=== PATIENT | female | born 1985 | race Caucasian/White ===

== ENCOUNTER 2016-09-21 13:49 | Emergency (ER) | payer OTHER ==
[~2016-09-21] VITALS: Ht 160 cm; Wt 79.5 kg
[~2016-09-21 13:49] MED LIST: FAMO-18 PO; IBUP-1542 PO; LORA-441 PO
[2016-09-21 14:19] VITALS: Ht 160 cm; Wt 79.5 kg
--- NOTE | 2016-09-21 15:51 | RADRPT ---
PROCEDURE: XR Chest. CLINICAL INDICATION: chest pain TECHNIQUE: Single frontal view of the chest was obtained COMPARISON: 03/04/16 FINDINGS: The heart and mediastinum are within normal limits. The lungs are clear. There is no pleural effusion or pneumothorax. RPTAT: AA IMPRESSION: No acute disease. .Brian Martin MD, MD Date Time Electronically viewed and signed by .Brian Martin MD, on 09/21/2016 15:51 .S/
--- NOTE | 2016-09-21 15:55 | ERD ---
ER Documentation Chief Complaint Date/Time DATE: 09/21/16 TIME: 15:51 Chief Complaint left/mid chest pain on/off x 1 week HPI Patient is a 30-year-old female who presents to the ED with left sided chest pain and sternum pain for 2 weeks on and off. She states that the pain is reproducible upon palpation. She states that when she pushes on her sternum she feels the pain. As well as on the left side of her chest. She denies radiation of pain. She denies shortness of breath or difficulty breathing. She denies nausea, vomiting or diarrhea. 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 She states that she has had this in the past. States that the pain went away on its own. She has not taken any medication for her symptoms. She denies headache or dizziness or passing out. She denies any cardiac problems besides hypertension which she is taking medicine. She states that her mom and grandma have had heart attacks and high blood pressure. No sudden cardiac in the family. Denies leg pain or swelling. Denies recent travel or use of OCPs. Denies recent surgeries. ROS All systems reviewed and are negative except as per history of present illness. Medications Home Meds Active Scripts Ibuprofen* (Motrin*) 600 Mg Tab, 600 MG PO Q6, #30 TAB Prov:SELWYN WADSWORTH PA-C 09/21/16 Lorazepam* (Ativan*) 0.5 Mg Tablet, 0.5 MG PO Q8, #10 TAB Prov:KANNAN HOWELL PA-C 03/04/16 Ibuprofen* (Motrin*) 600 Mg Tab, 600 MG PO Q6, #20 TAB Prov:KANNAN HOWELL PA-C 03/04/16 Famotidine* (Pepcid*) 20 Mg Tablet, 20 MG PO BID for 14 Days, TAB Prov:KANNAN HOWELL PA-C 03/04/16 Allergies Allergies: Coded Allergies: No Known Allergy (Unverified , 03/04/16) PMhx/Soc Medical and Surgical Hx: pt denies Medical Hx, pt denies Surgical Hx History of Surgery: Yes (appendix) Anesthesia Reaction: No Hx Neurological Disorder: No Hx Respiratory Disorders: No Hx Cardiac Disorders: Yes (htn) Hx Psychiatric Problems: No Hx Miscellaneous Medical Probl: No Hx Alcohol Use: No Hx Substance Use: No Hx Tobacco Use: No Smoking Status: Never smoker FmHx Family History: coronary disease (htn, [place]), No diabetes, No other Physical Exam Vitals Vital Signs Date Time Temp Pulse Resp B/P Pulse Ox O2 Delivery O2 Flow Rate FiO2 09/21/16 14:19 98.4 95 18 158/87 98 Physical Exam GENERAL: Well-developed, well-nourished female. Appears in no acute distress. ENT: Moist mucous membranes. No uvula deviation. No kissing tonsils. No exudates. NECK: Supple. No lymphadenopathy or thyromegaly. No meningismus. negative kernig. negative brudinski. LUNG: Clear to auscultation bilaterally. No rhonchi, wheezing, rales or coarse breath sounds. tenderness to sternum and left sided chest. pain is reproducible upon palpation. no stepoffs or deformities. no open wounds or lacerations. no erythema HEART: Regular rate and rhythm. No murmurs, rubs or gallops. Extremities: Equal pulses bilaterally. No peripheral clubbing, cyanosis or edema. No unilateral leg swelling. NEUROLOGIC: Alert and oriented. Moving all four extremities. 5/5 strength in all extremities. Normal speech. Steady gait. SKIN: Normal color. Warm and dry. No rashes or lesions. Capillary refill < 2 seconds Procedures/MDM ER COURSE: I kept the patient and/or family informed of laboratory and diagnostic imaging results throughout the emergency room course. EKG, MONITORS, & DIAGNOSTIC IMAGING: EKG performed, read by Dr. Mendiola 89 bpm, normal sinus rhythm, normal axis, no acute ST segment changes, no T wave inversion [place] [id number] Radiology Main Line: [phone] DIAGNOSTIC IMAGING REPORT Patient: CHON VERONICA : 1985 Age: 30 Sex: F MR #: [id number] DOS: 09/21/16 1518 Ordering MD: SELWYN WADSWORTH PA-C Location: [facility] Room/Bed: PROCEDURE: XR Chest. CLINICAL INDICATION: chest pain TECHNIQUE: Single frontal view of the chest was obtained COMPARISON: 03/04/16 FINDINGS: The heart and mediastinum are within normal limits. The lungs are clear. There is no pleural effusion or pneumothorax. RPTAT: AA IMPRESSION: No acute disease. .Brian Martin MD, Date Time Electronically viewed and signed by .Brian Martin MD, MD on 09/21/2016 15: 51 .S/ CC: SELWYN WADSWORTH PA-C MEDICAL DECISION MAKING: This is a 30-year-old female who presents with chest wall pain. Vital signs were reviewed. Patient is afebrile. Patient is not hypoxic. Patient is not toxic or ill-appearing. Her blood pressure of 158/87 is slightly elevated today here in the ED patient does have a history of hypertension and states that she did not take her medications today. I have low suspicion for hypertensive urgency, emergency or endorgan damage. Her pain is likely related to costochondritis versus chest wall strain. Low suspicion for ACS, PE, AAA, dissection, DVT. Pain is reproducible upon palpation at both the sternum and left sided chest. Low suspicion for intracranial hemorrhage, meningitis, intracranial mass, concussion, temporal arteritis, stroke, elevated intracranial pressure, seizure. DISCHARGE: At this time, patient is stable for discharge and outpatient management with no new complaints during the ER course. Patient was sent home with ibuprofen. Patient will be discharged home with instructions to recheck for new or worsening symptoms such as fever, nausea, weakness, LOC and to follow up with primary care in the next 1-2 days. Patient was advised to return to the ER for any new or worsening symptoms. Plan was discussed and patient and/or family understands and agrees. Home instructions were given. Departure Diagnosis: Primary Impression: Chest wall pain Condition: Stable SELWYN WADSWORTH PA-C Sep 21, 2016 15:55 SELWYN WADSWORTH PA-C Sep 21, 2016 15:55
[2016-09-21] MEDS ORDERED: IBUP-1542 PO (15:56)
== END 2016-09-21 16:08 | disposition home or self-care (01) ==
LOC: FTE 13:49
DX: R07.89 Other chest pain (principal); I10 Essential (primary) hypertension
CPT/HCPCS: 71010; 93005